=== PATIENT | female | born 1945 | race Caucasian/White ===

== ENCOUNTER 2016-12-02 19:14 | Inpatient (IN) | payer MEDICARE, OTHER ==
[~2016-12-02] VITALS: Ht 165.1 cm; Wt 73.7 kg
[2016-12-02] MEDS ORDERED: MORPHINE SULFATE 4 MG/ML, 1ML ONE ×2 (20:17→21:24)
[2016-12-02] MEDS ORDERED: LIDOCAINE 1%-EPI 1:100K, 30ML ONE (20:17)
[2016-12-02] MEDS ORDERED: DIPH,PERTUSS(ACELL),TET VAC/PF 0.5 ML IM-VACC ONE ×2 (20:17→20:30)
[2016-12-02] MEDS ORDERED: ONDANSETRON 2MG/ML, 2ML ONE (20:17)
[2016-12-02] MEDS: MORPHINE SULFATE 4 MG/ML, 1ML IVPush PRN ×2 (20:29→21:25)
[2016-12-02] MEDS ORDERED: SODIUM CHLORIDE FLUSH 10ML SYR IVF ONE (20:30)
[2016-12-02] MEDS ORDERED: ONDANSETRON 2MG/ML, 2ML IVPush ONE (20:30)
[2016-12-02] MEDS ORDERED: LIDOCAINE 1%-EPI 1:100K, 20ML SQ ONE (20:30)
[2016-12-02 20:39] LABS: HEMOGLOBIN 11.6 g/dL (11.7-16.4)
[2016-12-02 20:51] LABS: ASPARTATE AMINO TRANSFERASE 52 U/L (15-37); BLOOD UREA NITROGEN 27 mg/dL (7-18)
[2016-12-02 21:00] LABS: IS PT STATUS REG ER OR PRE ER? YES
[2016-12-02] MEDS ORDERED: SULF1TAB3 PO (21:11)
[2016-12-02] MEDS ORDERED: SODIUM CHLORIDE 0.9% 1,000ML IVBOLUS ONE (21:30)
[2016-12-02 22:09] LABS: ICTOTEST POSITIVE
[2016-12-02] MEDS ORDERED: CARB200T3 PO (22:20)
[2016-12-02] MEDS ORDERED: LABETALOL 5MG/ML, 20ML IV PRN (23:00)
[2016-12-02] MEDS ORDERED: ONDANSETRON 2MG/ML, 2ML IVP PRN (23:00)
[2016-12-02] MEDS ORDERED: MORPHINE SULFATE 4 MG/ML, 1ML IVPush PRN (23:00)
[2016-12-02] MEDS ORDERED: HYDROcodone/APAP 5/325 TABLET PO PRN (23:00)
[2016-12-02] MEDS ORDERED: ONDANSETRON ODT 4 MG PO PRN (23:00)
[2016-12-03] MEDS: NICOTINE 21 MG/24 HR PATCH.TD24 TD SCH ×2 (00:35→23:06)
[2016-12-03] MEDS: SULFAMETH./TRIMETHOPRIM DS 800MG/160MG TABLET PO SCH ×3 (00:35→20:38)
[2016-12-03] MEDS: SODIUM CHLORIDE 0.9% 1,000 ML IV SCH ×5 (00:36→23:06)
[2016-12-03 01:13] VITALS: BP 106/95
[2016-12-03 01:21] VITALS: BP 106/95
[2016-12-03 04:00] VITALS: BP 102/47
[2016-12-03 04:30] LABS: HEMOGLOBIN 9.2 g/dL (11.7-16.4)
[2016-12-03 04:53] LABS: BLOOD UREA NITROGEN 24 mg/dL (7-18)
[2016-12-03 05:09] LABS: ASPARTATE AMINO TRANSFERASE 64 U/L (15-37)
[2016-12-03] MEDS: SENNA/DOCUSATE TABLET PO SCH (08:08)
[2016-12-03] MEDS: CARBAMAZEPINE 200 MG TABLET PO SCH (08:08)
[2016-12-03 18:59] VITALS: BP 130/74
[2016-12-03] MEDS: ACETAMINOPHEN 325 MG TABLET PO PRN (20:38)
[2016-12-04 00:54] VITALS: BP 124/70
[2016-12-04 03:59] VITALS: BP 103/47
[2016-12-04 05:29] LABS: HEMOGLOBIN 9.1 g/dL (11.7-16.4)
[2016-12-04] MEDS ORDERED: SODIUM CHLORIDE 0.9% 1,000 ML IV SCH ×2 (05:30→22:49)
[2016-12-04 05:45] LABS: BLOOD UREA NITROGEN 8 mg/dL (7-18)
[2016-12-04 06:15] LABS: DIFF TOTAL CELLS COUNTED 100 CELL DIFF
[2016-12-04 06:27] LABS: VERIFY COUNTS? YES
[2016-12-04 06:28] LABS: HYPOCHROMIA 1+; MICROCYTOSIS 1+; POLYCHROMASIA 1+
[2016-12-04 06:42] VITALS: BP 118/64
[2016-12-04] MEDS: CARBAMAZEPINE 200 MG TABLET PO SCH (08:40)
[2016-12-04] MEDS: SULFAMETH./TRIMETHOPRIM DS 800MG/160MG TABLET PO SCH ×2 (08:40→20:06)
[2016-12-04] MEDS: SENNA/DOCUSATE TABLET PO SCH (09:00)
[2016-12-04] MEDS ORDERED: FUROSEMIDE 20 MG/2 ML IV ONE (10:30)
[2016-12-04 12:45] VITALS: BP 113/70
[2016-12-04 19:17] VITALS: BP 103/59
[2016-12-04] MEDS: ACETAMINOPHEN 325 MG TABLET PO PRN (20:06)
[2016-12-04] MEDS: NICOTINE 21 MG/24 HR PATCH.TD24 TD SCH (23:19)
[2016-12-04 23:30] VITALS: BP 99/59
[2016-12-05 00:58] VITALS: BP 112/62
[2016-12-05] MEDS ORDERED: ALBUTEROL SULFATE 2.5 MG/3 ML ONE (01:23)
[2016-12-05] MEDS ORDERED: FUROSEMIDE 20 MG/2 ML IV ONE (01:30)
[2016-12-05 08:19] VITALS: BP 97/57
[2016-12-05] MEDS: SENNA/DOCUSATE TABLET PO SCH (09:00)
[2016-12-05] MEDS: CARBAMAZEPINE 200 MG TABLET PO SCH (09:27)
[2016-12-05] MEDS: SULFAMETH./TRIMETHOPRIM DS 800MG/160MG TABLET PO SCH (09:27)
[2016-12-05 09:50] LABS: BLOOD UREA NITROGEN 8 mg/dL (7-18)
[2016-12-05 11:06] LABS: HGB A1C 5.5 %Hb (.)
[2016-12-05 12:38] VITALS: BP 104/52
[2016-12-05] MEDS: ACETAMINOPHEN 325 MG TABLET PO PRN (14:07)
== END 2016-12-05 19:20 | disposition left against medical advice (07) | DRG 82 ==
LOC: ED 23:01 → EDIP 23:10 → CCU 23:28 → 4EST 12-03 17:34 → 4WST 12-05 03:06
PROVIDERS: ADMIT Family Medicine; ATTEND Family Medicine
PROC: 0T9B70Z Drainage of Bladder with Drainage Device, Via Natural or Artificial Opening (ICD-10-PCS; principal; 2016-12-02)
DX: S06.5X9A Traumatic subdural hemorrhage with loss of consciousness of unspecified duration, initial encounter (principal); G93.6 Cerebral edema; J81.0 Acute pulmonary edema; N17.9 Acute kidney failure, unspecified; N39.0 Urinary tract infection, site not specified; E87.1 Hypo-osmolality and hyponatremia; S06.6X9A Traumatic subarachnoid hemorrhage with loss of consciousness of unspecified duration, initial encounter; J44.9 Chronic obstructive pulmonary disease, unspecified; S00.01XA Abrasion of scalp, initial encounter; F17.210 Nicotine dependence, cigarettes, uncomplicated; Y93.89 Activity, other specified; Y92.9 Unspecified place or not applicable; W18.30XA Fall on same level, unspecified, initial encounter
CPT/HCPCS: 36415; 70450; 71010; 72110; 72125; 72220; 80048; 80053; 80061; 81001; 82550; 83036; 83690; 83880; 84484; 85025; 85610; 85730; 87081; 87086; 90471; 90715; 93005; 93306; 94640; 96361; 96374; 96375; 96376; J2405; J1940; J7030

== ENCOUNTER 2017-04-26 17:46 | Inpatient (IN) | payer MEDICARE ==
[~2017-04-26] VITALS: Ht 165.1 cm; Wt 63.1 kg
[~2017-04-26 17:46] MED LIST: CARB200T3 PO; SULF-169 PO
[2017-04-26] MEDS ORDERED: SODIUM CHLORIDE 0.9% 1,000ML IVBOLUS ONE ×2 (18:30→19:30)
[2017-04-26] MEDS ORDERED: ALBUTEROL/IPRATROPIUM 2.5MG/0.5MG, 3 ML NPPB ONE (18:30)
[2017-04-26] MEDS ORDERED: SODIUM CHLORIDE FLUSH 10ML SYR IVF ONE (18:30)
[2017-04-26 18:34] LABS: ASPARTATE AMINO TRANSFERASE 16 U/L (15-37); BLOOD UREA NITROGEN 16 mg/dL (7-18)
[2017-04-26 18:36] LABS: HEMATOCRIT 36.4 % (34.6-47.8); WHITE BLOOD COUNT 13.1 x10^3/uL (3.4-10)
[2017-04-26 18:39] LABS: IS PT STATUS REG ER OR PRE ER? YES
[2017-04-26 18:51] LABS: DIFF TOTAL CELLS COUNTED 100 CELL DIFF
[2017-04-26 18:53] LABS: ANISOCYTOSIS 1+; POLYCHROMASIA 1+; VERIFY COUNTS? YES
[2017-04-26] MEDS ORDERED: CEFTRIAXONE PMX 1GM/50ML 50 ML ONE (18:56)
[2017-04-26] MEDS ORDERED: CEFTRIAXONE PMX 1GM/50ML 50 ML IV ONE (19:00)
[2017-04-26] MEDS ORDERED: PIPERACILLIN/TAZO/PMX 3.375GM 50 ML IVPB ONE (20:00)
[2017-04-26] MEDS ORDERED: ONDANSETRON 2MG/ML, 2ML IVPush PRN (21:00)
[2017-04-26] MEDS ORDERED: DOCUSATE 100 MG CAPSULE PO PRN (21:00)
[2017-04-26] MEDS ORDERED: morphine SULFATE 10 MG/ML, 1ML IVPush PRN (21:00)
[2017-04-26] MEDS ORDERED: BISACODYL 10 MG SUPP PR PRN (21:00)
[2017-04-26] MEDS ORDERED: POLYETHYLENE GLYCOL 17 GM PACKET PO PRN (21:00)
[2017-04-26] MEDS ORDERED: ACETAMINOPHEN 325 MG TABLET PO PRN (21:00)
[2017-04-26] MEDS ORDERED: HYDROcodone/APAP 5/325 TABLET PO PRN (21:00)
[2017-04-26 21:31] VITALS: BP 104/57
[2017-04-26 22:16] VITALS: BP 90/48
[2017-04-26 22:17] LABS: IS PT STATUS REG ER OR PRE ER? NO
[2017-04-26] MEDS: POTASSIUM CHLORIDE 10 MEQ in SODIUM CHLORIDE 0.9% 1,000 ML IV SCH (22:23)
[2017-04-26] MEDS: PIPERACILLIN/TAZO/PMX 3.375GM 50 ML IV SCH (22:23)
[2017-04-26] MEDS: NICOTINE 21 MG/24 HR PATCH.TD24 TD SCH (22:24)
[2017-04-26] MEDS: TEMAZEPAM 15 MG CAPSULE PO PRN (22:24)
[2017-04-27 00:12] LABS: CYTOLOGY BODY FLUID RECD INTO PATHOLOGY; CYTOLOGY BODY FLUID SOURCE OTHER - SEE COMMENT
[2017-04-27 02:22] VITALS: BP 97/58
[2017-04-27] MEDS: PIPERACILLIN/TAZO/PMX 3.375GM 50 ML IV SCH ×4 (02:58→21:29)
[2017-04-27 06:07] LABS: BLOOD UREA NITROGEN 19 mg/dL (7-18)
[2017-04-27 06:23] LABS: HEMATOCRIT 29.9 % (34.6-47.8); HEMOGLOBIN 9.9 g/dL (11.7-16.4)
[2017-04-27 06:30] LABS: IS PT STATUS REG ER OR PRE ER? NO
[2017-04-27] MEDS: POTASSIUM CHLORIDE 10 MEQ in SODIUM CHLORIDE 0.9% 1,000 ML IV SCH ×2 (06:30→17:54)
[2017-04-27 07:45] VITALS: BP 87/48
[2017-04-27] MEDS: CARBAMAZEPINE 200 MG TABLET PO SCH (09:00)
[2017-04-27 14:20] VITALS: BP 90/52
[2017-04-27 18:43] VITALS: BP 94/51
[2017-04-27 18:46] LABS: HEMATOCRIT 27.7 % (34.6-47.8)
[2017-04-27] MEDS: NICOTINE 21 MG/24 HR PATCH.TD24 TD SCH (21:30)
[2017-04-27] MEDS: TEMAZEPAM 15 MG CAPSULE PO PRN (21:30)
[2017-04-28 01:07] VITALS: BP 83/47
[2017-04-28 01:25] VITALS: BP 93/53
[2017-04-28] MEDS: POTASSIUM CHLORIDE 10 MEQ in SODIUM CHLORIDE 0.9% 1,000 ML IV SCH ×2 (01:53→08:00)
[2017-04-28] MEDS: PIPERACILLIN/TAZO/PMX 3.375GM 50 ML IV SCH ×2 (03:14→10:38)
[2017-04-28 05:39] LABS: HEMATOCRIT 26.7 % (34.6-47.8); HEMOGLOBIN 8.7 g/dL (11.7-16.4); WHITE BLOOD COUNT 7.8 x10^3/uL (3.4-10)
[2017-04-28 05:40] LABS: BLOOD UREA NITROGEN 16 mg/dL (7-18)
[2017-04-28 07:24] VITALS: BP 90/52
[2017-04-28] MEDS ORDERED: AMIODARONE 150 MG in DEXTROSE 5% 100 ML IV ONE (08:30)
[2017-04-28] MEDS ORDERED: AMIODARONE 900 MG in DEXTROSE 5% 482 ML IV PRN (08:30)
[2017-04-28] MEDS ORDERED: FILTER 0.22 MICRON FOR AMIODARONE IV PRN (08:30)
[2017-04-28] MEDS: CARBAMAZEPINE 200 MG TABLET PO SCH (09:00)
[2017-04-28] MEDS: CYANOCOBALAMIN 1,000 MCG/ML, 1ML IM SCH (09:00)
[2017-04-28 10:39] LABS: IS PT STATUS REG ER OR PRE ER? NO
[2017-04-28 14:18] VITALS: BP 88/50
[2017-04-28] MEDS ORDERED: HYDROcodone/APAP 5/325 TABLET PO PRN (15:30)
[2017-04-28] MEDS ORDERED: BISACODYL 10 MG SUPP PR PRN (15:30)
[2017-04-28] MEDS ORDERED: DOCUSATE 100 MG CAPSULE PO PRN (15:30)
[2017-04-28] MEDS ORDERED: ACETAMINOPHEN 325 MG TABLET PO PRN (15:30)
[2017-04-28] MEDS: CEFTRIAXONE PMX 1GM/50ML 50 ML IV SCH (16:01)
[2017-04-28 16:09] LABS: IS PT STATUS REG ER OR PRE ER? NO
[2017-04-28] MEDS: SODIUM CHLORIDE 0.9% 1,000 ML IV SCH (16:42)
[2017-04-28 20:17] VITALS: BP 120/63
[2017-04-28] MEDS: NICOTINE 21 MG/24 HR PATCH.TD24 TD SCH (20:35)
[2017-04-28] MEDS: TEMAZEPAM 15 MG CAPSULE PO PRN (20:36)
[2017-04-29] MEDS: SODIUM CHLORIDE 0.9% 1,000 ML IV SCH ×3 (02:30→22:30)
[2017-04-29 03:06] VITALS: BP 123/57
[2017-04-29 07:37] VITALS: BP 114/67
[2017-04-29] MEDS: CYANOCOBALAMIN 1,000 MCG/ML, 1ML IM SCH (09:31)
[2017-04-29] MEDS: FOLIC ACID 1 MG TABLET PO SCH (09:31)
[2017-04-29] MEDS: CARBAMAZEPINE 200 MG TABLET PO SCH (09:32)
[2017-04-29 14:30] VITALS: BP 140/68
[2017-04-29] MEDS: CEFTRIAXONE PMX 1GM/50ML 50 ML IV SCH (15:20)
[2017-04-29 20:01] VITALS: BP 139/55
[2017-04-29] MEDS: NICOTINE 21 MG/24 HR PATCH.TD24 TD SCH (20:26)
[2017-04-29] MEDS: TEMAZEPAM 15 MG CAPSULE PO PRN (20:26)
[2017-04-30 02:17] VITALS: BP 109/54
[2017-04-30 05:23] LABS: BLOOD UREA NITROGEN 5 mg/dL (7-18)
[2017-04-30 05:25] LABS: ASPARTATE AMINO TRANSFERASE 11 U/L (15-37); HEMATOCRIT 26.7 % (34.6-47.8); HEMOGLOBIN 8.9 g/dL (11.7-16.4); WHITE BLOOD COUNT 5.3 x10^3/uL (3.4-10)
[2017-04-30 07:02] VITALS: BP 126/65
[2017-04-30] MEDS ORDERED: REGADENOSON 0.4 MG/5 ML SYRINGE ONE (08:23)
[2017-04-30] MEDS: CARBAMAZEPINE 200 MG TABLET PO SCH (09:44)
[2017-04-30] MEDS: CYANOCOBALAMIN 1,000 MCG/ML, 1ML IM SCH (09:44)
[2017-04-30] MEDS: FOLIC ACID 1 MG TABLET PO SCH (09:44)
[2017-04-30] MEDS: SODIUM CHLORIDE 0.9% 1,000 ML IV SCH (09:44)
[2017-04-30 13:40] VITALS: BP 137/68
[2017-04-30] MEDS: CEFTRIAXONE PMX 1GM/50ML 50 ML IV SCH (14:42)
== END 2017-04-30 17:27 | disposition home or self-care (01) | DRG 698 ==
LOC: ED 18:43 → EDIP 20:26 → 4WST 21:55
DX: N32.0 Bladder-neck obstruction (principal); N17.0 Acute kidney failure with tubular necrosis; J96.10 Chronic respiratory failure, unspecified whether with hypoxia or hypercapnia; E87.2 Acidosis; E44.0 Moderate protein-calorie malnutrition; J84.10 Pulmonary fibrosis, unspecified; I48.91 Unspecified atrial fibrillation; N13.30 Unspecified hydronephrosis; E87.1 Hypo-osmolality and hyponatremia; N39.0 Urinary tract infection, site not specified; J44.9 Chronic obstructive pulmonary disease, unspecified; D53.9 Nutritional anemia, unspecified; D75.89 Other specified diseases of blood and blood-forming organs; Z68.23 Body mass index [BMI] 23.0-23.9, adult; F17.200 Nicotine dependence, unspecified, uncomplicated; K80.20 Calculus of gallbladder without cholecystitis without obstruction; N32.81 Overactive bladder; N85.4 Malposition of uterus; R31.0 Gross hematuria; R32 Unspecified urinary incontinence
CPT/HCPCS: 36415; 71010; 74176; 78452; 80048; 80053; 81001; 82533; 82550; 82607; 82746; 83605; 83735; 84145; 84443; 84484; 85014; 85018; 85025; 85610; 87040; 87086; 88112; 93005; 93017; 96365; 96366; J0696; J2543; J2785; J3480; A9502; C9898; J0282; J3420; J7030; J7060

== ENCOUNTER 2017-10-22 21:29 | Emergency (ER) | payer MEDICARE ==
[~2017-10-22] VITALS: Ht 165.1 cm; Wt 59.4 kg
[2017-10-22] MEDS ORDERED: SODIUM CHLORIDE FLUSH 10ML SYR IVF ONE (22:00)
[2017-10-22] MEDS ORDERED: SODIUM CHLORIDE 0.9% 1,000ML IVBOLUS ONE (22:00)
[2017-10-22 22:08] LABS: BASOPHILS # (AUTO) 0.05 x10^3/uL (0-0.1); BASOPHILS % (AUTO) 1 % (0-1); EOSINOPHILS # (AUTO) 0.29 x10^3/uL (0-0.4); EOSINOPHILS % (AUTO) 3 % (1-7); LYMPHOCYTES # (AUTO) 2.35 x10^3/uL (1-3.4); LYMPHOCYTES % (AUTO) 25 % (22-44); MD NO; MEAN CORPUSCULAR HEMOGLOBIN 33.9 pg (27.0-34.8); MEAN CORPUSCULAR HGB CONC 33.7 g/dL (32.4-35.8); MEAN CORPUSCULAR VOLUME 100.6 fL (80-100); MEAN PLATELET VOLUME 6.8 fL (7.4-10.4); MONOCYTES # (AUTO) 0.52 x10^3/uL (0.2-0.8); MONOCYTES % (AUTO) 6 % (2-9); NEUTROPHILS # (AUTO) 6.25 x10^3/uL (1.8-6.8); NEUTROPHILS % (AUTO) 66 % (42-75); PLATELET COUNT 379 x10^3/uL (130-400); RED BLOOD COUNT 2.83 x10^6/uL (3.82-5.3)
[2017-10-22 22:20] LABS: ALANINE AMINOTRANSFERASE 9 U/L (12-78); ALBUMIN 3.5 g/dL (3.4-5.0); ANION GAP 6 mmol/L (5-15); CALCIUM 8.8 mg/dL (8.5-10.1); CHLORIDE 100 mmol/L (98-107); CREATININE 0.56 mg/dL (0.55-1.02)
[2017-10-22 22:21] LABS: INTERNATIONAL NORMALIZED RATIO 0.96 (0.93-1.1); PROTHROMBIN TIME 9.9 Seconds (9.6-11.5)
[2017-10-22 22:22] LABS: ALKALINE PHOSPHATASE 71 U/L (45-117); BILIRUBIN,TOTAL 0.2 mg/dL (0.2-1.0); TOTAL PROTEIN 7.9 g/dL (6.4-8.2)
[2017-10-22] MEDS ORDERED: ASPI-515 PO (22:28)
[2017-10-22 22:58] LABS: MICROSCOPIC INDICATED
[2017-10-22 23:00] LABS: CULTURE INDICATED? NO
[2017-10-22 23:59] VITALS: BP 140/70
== END 2017-10-23 00:16 | disposition home or self-care (01) ==
LOC: ED 10-23 00:10
DX: R31.0 Gross hematuria (principal); R33.9 Retention of urine, unspecified; D64.9 Anemia, unspecified; J44.9 Chronic obstructive pulmonary disease, unspecified; F17.200 Nicotine dependence, unspecified, uncomplicated
CPT/HCPCS: 36415; 51702; 80053; 81001; 85025; 85610; 85730; 96360; 99284; J7030